=== PATIENT | female | born 1955 | race Asian ===

== ENCOUNTER 2017-06-22 13:55 | Emergency (ER) | payer OTHER ==
[~2017-06-22] VITALS: Ht 170.2 cm; Wt 78.0 kg
[2017-06-22 13:50] VITALS: TEMP 97.5
[~2017-06-22 13:55] MED LIST: ACTOS15 MG PO; DEPAKOTE DR PO; DONE5TAB PO; FLUTICASON50 MCG/ACT; GLIM2TAB PO; INCRUSE EL62.5 MCG/I IN; LACTSYP31 PO; LANTUS SOLOSTAR SC; LORADAMED10 MG PO; MIRTAZAPINE7.5 MG PO; MONT10TA PO; NAMENDA XR14 MG PO; NOVOLOG100 MG/ML SC; TRAMADOL HCL E100 MG PO; VITAMIN D31000 UNI1 PO; XARELTO15 MG PO
[2017-06-22 14:15] LABS: PLATELET COUNT 340 K/uL (152-353)
[2017-06-22 14:35] LABS: POTASSIUM 3.8 mmol/L (3.6-5.2); SODIUM 133 mmol/L (136-145)
[2017-06-22 15:51] VITALS: BP 128/78
[2017-06-22] MEDS ORDERED: GLIM4TAB PO (16:23)
[2017-06-22] MEDS ORDERED: LAMICTAL XR50 MG PO (16:24)
[2017-06-22] MEDS ORDERED: RISP0.25 PO (16:26)
[2017-06-22] MEDS ORDERED: TRAM50TA PO (16:26)
[2017-06-22] MEDS ORDERED: TRAZ50TA36 PO (16:27)
[2017-06-22] MEDS ORDERED: ELIQUIS5 MG PO (16:30)
[2017-06-22] MEDS ORDERED: MULT VITAMI1 PO (16:30)
[2017-06-22] MEDS ORDERED: SYSTANE ULTRA OP (16:33)
[2017-06-22] MEDS ORDERED: INSUINJP SC (16:34)
[2017-06-22] MEDS ORDERED: XALATAN0.005 % OP (16:36)
== END 2017-06-22 15:56 | disposition other institution (70) ==
LOC: ED 13:55
PROVIDERS: Emergency Medicine
DX: Z04.6 Encounter for general psychiatric examination, requested by authority (principal); E11.9 Type 2 diabetes mellitus without complications; M19.90 Unspecified osteoarthritis, unspecified site
CPT/HCPCS: 36415; 80053; 80061; 80307; 80320; 80329; 81000; 82607; 82746; 83036; 83735; 84100; 84134; 84439; 84443; 85027; 85610; 93005; 99285

== ENCOUNTER 2021-10-07 21:57 | Emergency (ER) | payer OTHER ==
[~2021-10-07] VITALS: Ht 160 cm; Wt 59.0 kg
[~2021-10-07 21:57] MED LIST changes: +ELIQUIS5 MG PO; +GLIM4TAB PO; +INSUINJP SC; +LAMICTAL XR50 MG PO; +MULT VITAMI1 PO; +NITR100C PO; +RISP0.25 PO; +SYSTANE ULTRA OP; +TRAM50TA PO; +TRAZ50TA36 PO; +XALATAN0.005 % OP
[2021-10-07 22:51] LABS: PLATELET COUNT 290 K/uL (152-353)
[2021-10-07 22:57] LABS: POTASSIUM 3.6 mmol/L (3.6-5.2)
[2021-10-07 23:40] VITALS: BP 112/79; TEMP 98.5
[2021-10-08] MEDS ORDERED: ARTIFICIAL TEARS1 % OPTH (08:55)
[2021-10-08] MEDS ORDERED: SENNOSIDES8.6 MG PO (08:57)
[2021-10-08] MEDS ORDERED: POLYETHYLENE GL17 GM PO (08:57)
[2021-10-08] MEDS ORDERED: VITAMIN D1000 UNI1 PO (08:58)
[2021-10-08] MEDS ORDERED: TRAZODONE HYDR100 MG PO (08:58)
[2021-10-08] MEDS ORDERED: SERTRALINE HYDR25 MG PO (08:59)
[2021-10-08] MEDS ORDERED: RISP1TAB PO (09:13)
[2021-10-08] MEDS ORDERED: DAILY PROBIOTI250 MG PO (09:14)
[2021-10-08] MEDS ORDERED: TYLENOL325 MG PO (09:18)
[2021-10-08] MEDS ORDERED: GLUCAGON1 M1 IM (09:18)
[2021-10-08] MEDS ORDERED: ACETAMINOPHEN PO (09:21)
== END 2021-10-07 23:57 | disposition other institution (70) ==
LOC: ED 21:57
PROVIDERS: Family Medicine
DX: F03.91 Unspecified dementia, unspecified severity, with behavioral disturbance (principal); Z11.52 Encounter for screening for COVID-19; Z04.6 Encounter for general psychiatric examination, requested by authority
CPT/HCPCS: 36415; 80053; 85027; 87635; 99283; U0003

== ENCOUNTER 2022-06-02 16:12 | Emergency (ER) | payer OTHER ==
[~2022-06-02] VITALS: Ht 165.1 cm; Wt 63.5 kg
[2022-06-02 16:12] VITALS: BP 128/82; TEMP 98.2
[~2022-06-02 16:12] MED LIST changes: +ACET-206 PO; +ACETAMINOPHEN PO; +ARTIFICIAL TEARS1 % OPTH; +Artificial Tears 0.2 OPTH; +CHOL100034 PO; +DAILY PROBIOTI250 MG PO; +GLUCAGON1 M1 IM; +MIRALAX 17GM PAK PO; +OLANZAPINE10 MG PO; +PIOG30TA PO; +POLYETHYLENE GL17 GM PO; +RISP1TAB PO; +SENNOSIDES8.6 MG PO; +SERT50TA PO; +SERTRALINE HYDR25 MG PO; +TRAZODONE HYDR100 MG PO; +TYLENOL325 MG PO; +VITAMIN D1000 UNI1 PO
[2022-06-02 16:34] LABS: PLATELET COUNT 291 K/uL (152-353)
[2022-06-02 16:38] LABS: POTASSIUM 4.2 mmol/L (3.6-5.2)
[2022-06-02] MEDS ORDERED: ZYPREXA ZYDI10 MG PO (18:55)
[2022-06-02] MEDS ORDERED: MULTIVITAMIN1 TA1 PO (18:56)
[2022-06-02] MEDS ORDERED: TRAZ50TA36 PO (19:00)
[2022-06-02] MEDS ORDERED: TYLENOL325 MG PO (19:03)
== END 2022-06-02 17:52 | disposition still patient (30) ==
LOC: ED 16:12
PROVIDERS: Emergency Medicine
DX: F25.8 Other schizoaffective disorders (principal); R45.1 Restlessness and agitation; Z11.52 Encounter for screening for COVID-19; Z04.6 Encounter for general psychiatric examination, requested by authority
CPT/HCPCS: 36415; 80053; 85027; 87635; 93005; 99283; U0003